=== PATIENT | male | born 1940 | race Caucasian/White ===

== ENCOUNTER → 2018-12-20 | Outpatient (CLI) | payer MEDICARE, OTHER ==
[2018-12-20 12:27] LABS: BASO % 0.5 % (0.0-1.0); EOS # 0.1 10^3/uL (0.0-0.50); EOS % 2.7 % (0.0-3.0); HEMATOCRIT 32.1 % (42.0-52.0); HEMOGLOBIN 11.2 g/dl (13.5-17.5); LYMPH % 24.5 % (24.0-44.0); MEAN CORPUSCULAR HEMOGLOBIN 33.7 pg (27.0-33.0); MEAN CORPUSCULAR HGB CONC 34.9 g/dl (32.0-36.5); MEAN CORPUSCULAR VOLUME 96.7 fl (80.0-96.0); MONO # 0.7 10^3/uL (0.0-0.8); MONO % 16.8 % (0.0-5.0); NEUTROPHILS # 2.2 10^3/uL (1.8-7.7); PLATELET COUNT, AUTOMATED 159 10^3/uL (150-450); RED BLOOD COUNT 3.32 10^6/uL (4.30-6.10)
--- NOTE | 2018-12-20 12:32 | REP ---
AP lateral right hip two views History: Ankylosing spondylitis There is no acute fracture or dislocation. There is minimal narrowing of the joint space with associated sclerosis. Impression: Degenerative change as described above. Electronically Signed by Raymond Leavitt MD 12/20/2018 12:24 P
[2018-12-20 12:34] LABS: APPEARANCE, URINE HAZY (CLEAR); BACTERIA, URINE AUTO NEGATIVE (NEGATIVE); BILIRUBIN, URINE AUTO NEGATIVE (NEGATIVE); BLOOD, URINE BLOOD NEGATIVE (NEGATIVE); CALCIUM OXALATE CRYSTALS SMALL; COLOR, URINE AMBER (YELLOW); GLUCOSE, URINE (UA) AUTO NEGATIVE (NEGATIVE); KETONE, URINE AUTO NEGATIVE (NEGATIVE); LEUKOCYTE ESTERASE, URINE AUTO NEGATIVE (NEGATIVE); NITRITE, URINE AUTO NEGATIVE (NEGATIVE); PROTEIN, URINE AUTO NEGATIVE (NEGATIVE); RBC, URINE AUTO 5 /HPF (0-3); SQUAMOUS EPITHELIAL CELL UR AU 0 /HPF (0-6); UROBILINOGEN, URINE AUTO 0.2 mg/dL (0.0-2.0); WBC, URINE AUTO 0 /HPF (0-3)
[2018-12-20 12:55] LABS: ALBUMIN 4.4 GM/DL (3.2-5.2); ALT/SGPT 36 U/L (12-78); BILIRUBIN,TOTAL 0.5 MG/DL (0.2-1.0); BLOOD UREA NITROGEN 39 MG/DL (7-18); C REACTIVE PROTEIN QUANTITATIV < 0.30 MG/DL (0.00-0.30); CALCIUM LEVEL 10.2 MG/DL (8.8-10.2); CARBON DIOXIDE LEVEL 25 MEQ/L (21-32); CHLORIDE LEVEL 104 MEQ/L (98-107); COMPLEMENT C3 105 MG/DL (90-180); COMPLEMENT C4 26 MG/DL (10-40); CPK CREATINE PHOSPHOKINASE 248 U/L (39-308); CREATININE FOR GFR 1.16 MG/DL (0.70-1.30); GLOMERULAR FILTRATION RATE > 60.0 (>42); GLUCOSE, FASTING 99 MG/DL (70-100); RHEUMATOID FACTOR QUANT < 10.0 IU/ML (<15.0); SODIUM LEVEL 136 MEQ/L (136-145); TOTAL PROTEIN 7.2 GM/DL (6.4-8.2); URIC ACID 5.7 MG/DL (3.5-7.2)
[2018-12-20 12:56] LABS: TOTAL PROTEIN,RANDOM URINE 17.6 MG/DL (0.0-12.0)
--- NOTE | 2018-12-20 13:07 | REP ---
BILATERAL SHOULDER, SIX VIEWS: HISTORY: Ankylosing spondylitis. RIGHT SHOULDER: There is no acute fracture or dislocation. There is moderate narrowing of the joint spaces. IMPRESSION: Degenerative change as described above. LEFT SHOULDER: There is no acute fracture or dislocation. There is mild narrowing of the glenohumeral joint space and moderate narrowing of the acromioclavicular joint space. IMPRESSION: Degenerative change as described above. Electronically Signed by Raymond Leavitt MD 12/20/2018 01:19 P
--- NOTE | 2018-12-20 13:21 | REP ---
SI joint series: Four views. History: Ankylosing spondylitis. Findings: AP, tube angled, and bilateral oblique views of the sacroiliac joints do not show evidence of erosive change or ankylosis in either SI joint. There is vascular calcification noted. No bony destructive lesion is seen. There are surgical sutures suggesting a previous inguinal hernia repair on the left. There are degenerative disc changes in the lower lumbar spine. 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 Impression: No SI joint erosive or ankylosis changes seen. Electronically Signed by Jayden Schneider MD 12/20/2018 07:29 P
[2018-12-20 13:22] LABS: ERYTHROCYTE SEDIMENTATION RATE 40 mm/hr (0-20)
[2018-12-25 00:07] LABS: ANA (HEP2) Negative (.); ANTI DS-DNA AB <1:10 titer (.); CYCLIC CITRULLINATED PEPTIDE 7 units (0-19); HLA-B27 Negative (.); IgG P18 AB Present (.); IgG P23 AB Present (.); IgG P28 AB Absent (.); IgG P30 AB Absent (.); IgG P39 AB Present (.); IgG P41 AB Present (.); IgG P45 AB Absent (.); IgG P66 AB Absent (.); IgG P93 AB Absent (.); IgM P23 AB Absent (.); IgM P39 AB Absent (.); IgM P41 AB Absent (.); LYME IgG WB INTERPRETATION Positive (.); LYME IgM WB INTERPRETATION Negative (.)
== END ==
LOC: M LAB 11:28
PROVIDERS: ATTEND Internal Medicine Rheumatology
DX: M16.11 Unilateral primary osteoarthritis, right hip (principal); M19.011 Primary osteoarthritis, right shoulder; M19.012 Primary osteoarthritis, left shoulder; R76.8 Other specified abnormal immunological findings in serum; M45.9 Ankylosing spondylitis of unspecified sites in spine; M79.10 Myalgia, unspecified site; M25.519 Pain in unspecified shoulder
CPT/HCPCS: 36415; 72202; 73030; 73502; 80053; 81001; 81374; 82550; 82570; 84156; 84443; 84550; 85025; 85652; 86038; 86140; 86160; 86200; 86225; 86431; 86617; G0463